=== PATIENT | female | born 1970 | race American Indian/Alaskan Native ===

== ENCOUNTER 2021-04-21 20:12 | Emergency (ER) | payer SELFPAY ==
[2021-04-21 20:20] VITALS: BP 144/82
[2021-04-21] MEDS ORDERED: KETOROLAC 30 MG/1 ML INJ IM ONE (21:19)
[2021-04-21] MEDS ORDERED: oxyCODONE /ACETAMINOPHEN 5-325MG TAB PO ONE (21:19)
[2021-04-21] MEDS ORDERED: dexAMETHasone 20 MG/5 ML VIAL IM ONE (21:19)
[2021-04-21 21:36] LABS: Basophils # (Auto) 0.1 K/mm3 (0.0-0.1); Basophils % (Auto) 1.3 % (0.0-1.8); Eosinophils # (Auto) 0.1 K/mm3 (0.0-0.4); Eosinophils % (Auto) 0.9 % (0.0-4.3); Hematocrit 39.1 % (30.3-42.9); Hemoglobin 13.2 gm/dl (10.1-14.3); Lymphocytes # (Auto) 2.2 K/mm3 (1.2-5.4); Lymphocytes % (Auto) 21.9 % (13.4-35.0); Mean Corpuscular HGB Conc 34 % (30-34); Mean Corpuscular Volume 84 fl (79-97); Monocytes # (Auto) 0.8 K/mm3 (0.0-0.8); Monocytes % (Auto) 8.1 % (0.0-7.3); Platelet Count 354 K/mm3 (140-440); Red Blood Count 4.66 M/mm3 (3.65-5.03)
[2021-04-21 22:00] LABS: Alanine Aminotransferase 48 units/L (7-56); Albumin 4.5 g/dL (3.9-5); Blood Urea Nitrogen 11 mg/dL (7-17); Calcium 10.5 mg/dL (8.4-10.2); Hemolysis Index 8
[2021-04-21 22:03] LABS: BUN/Creatinine Ratio 22
--- NOTE | 2021-04-21 23:06 | Emergency Department Report ---
ED Extremity Problem HPI - General Chief complaint: Extremity Injury, Upper Stated complaint: PAIN UP AND DOWN RIGHT ARM Source: patient Mode of arrival: Ambulatory Limitations: No Limitations - History of Present Illness Initial comments: Patient is a 50-year-old -Turkish female with a history of chronic osteoarthritis, and who goes to pain clinic, history of hypertension and [id number] diabetes who presents to the ED with complaint of acute exacerbation of her chronic right shoulder and elbow pain for the last 1 week, worse in the last 2 days. Patient states that she is been unable to perform any active range of motion of the right arm because of worsening right shoulder and elbow pain. Patient states that the pain is typical of her chronic pain of the right shoulder and elbow from chronic osteoarthritis. Patient denies fall, traumatic injury, numbness and tingling or weakness of right arm, neck pain, chest pain, shortness of breath, nausea and vomiting, headache, dizziness, syncope, back pain, fever and chills. MD Complaint: extremity pain (right shoulder and elbow pain), joint paint (right shoulder and elbow pain) -: days(s) (5), year(s) (3) Location: right, upper extremity (arm, shoulder and elbow) History of Same: Yes (chronic osteoarthritis) -: Yes arthralgia, No fever, No associated dyspnea, No associated chest pain Radiation: distal Severity scale (0 -10): 9 Quality: aching, sharp Consistency: constant Improves with: nothing Worsens with: weight bearing, walking, exertion, palpation Associated Symptoms: denies other symptoms, arthralgias (right shoulder, elbow pain). denies: chest pain, shortness of breath, fever, myalgias - Related Data Previous Rx's Medication Instructions Recorded Last Taken Type methOCARBAMOL [Robaxin] 500 mg PO BID #30 tab 09/06/13 Unknown Rx predniSONE [Deltasone] 50 mg PO QDAY #5 tab 09/06/13 Unknown Rx HYDROcodone/APAP 5-325 [[place] 1 each PO Q6HR PRN #20 tablet 08/04/15 Unknown Rx 5-325 mg TAB] Naproxen [Naprosyn TAB] 500 mg PO BID #30 tablet 08/04/15 Unknown Rx Allergies Allergy/AdvReac Type Severity Reaction Status Date / Time latex Allergy Unknown Verified 04/21/21 20:18 ED Review of Systems ROS: Stated complaint: PAIN UP AND DOWN RIGHT ARM Other details as noted in HPI Constitutional: denies: chills, fever Eyes: denies: eye pain, eye discharge, vision change ENT: denies: ear pain, throat pain Respiratory: denies: cough, shortness of breath, wheezing Cardiovascular: denies: chest pain, palpitations Endocrine: no symptoms reported Gastrointestinal: denies: abdominal pain, nausea, diarrhea Genitourinary: denies: urgency, dysuria, discharge Musculoskeletal: arthralgia (Right shoulder and elbow pain), myalgia. denies: back pain, joint swelling Skin: denies: rash, lesions Neurological: denies: headache, weakness, paresthesias Psychiatric: denies: anxiety, depression Hematological/Lymphatic: denies: easy bleeding, easy bruising ED Past Medical Hx - Past Medical History Previous Medical History?: Yes Hx Hypertension: Yes (no meds) Hx Diabetes: Yes Hx Arthritis: Yes (currently under the care of chronic pain management at [place]) - Surgical History Past Surgical History?: Yes Additional Surgical History: Fibroids embolization, left knee surgery - Social History Smoking Status: Never Smoker Substance Use Type: None - Medications Home Medications: Home Medications Medication Instructions Recorded Confirmed Last Taken Type methOCARBAMOL [Robaxin] 500 mg PO BID #30 tab 09/06/13 Unknown Rx predniSONE [Deltasone] 50 mg PO QDAY #5 tab 09/06/13 Unknown Rx HYDROcodone/APAP 5-325 [[place] 1 each PO Q6HR PRN #20 tablet 08/04/15 Unknown Rx 5-325 mg TAB] Naproxen [Naprosyn TAB] 500 mg PO BID #30 tablet 08/04/15 Unknown Rx ED Physical Exam - General Limitations: No Limitations General appearance: alert, in no apparent distress - Head Head exam: Present: atraumatic, normocephalic, normal inspection - Eye Eye exam: Present: normal appearance, PERRL, EOMI Pupils: Present: normal accommodation - ENT ENT exam: Present: normal exam, normal orophraynx, mucous membranes moist, TM's normal bilaterally, normal external ear exam - Neck Neck exam: Present: normal inspection, full ROM. Absent: tenderness - Respiratory Respiratory exam: Present: normal lung sounds bilaterally. Absent: respiratory distress, wheezes, rales, rhonchi, chest wall tenderness, accessory muscle use, decreased breath sounds, prolonged expiratory - Cardiovascular Cardiovascular Exam: Present: normal rhythm, tachycardia, normal heart sounds. Absent: systolic murmur, diastolic murmur, rubs, gallop - GI/Abdominal GI/Abdominal exam: Present: soft, normal bowel sounds. Absent: tenderness, guarding, rebound, hyperactive bowel sounds, organomegaly, bruit - Extremities Exam Extremities exam: Present: normal inspection, tenderness (Palpable right shoulder and elbow tenderness with limited range of motion due to pain), normal capillary refill. Absent: full ROM (Limited range of motion of right shoulder and elbow due to pain), pedal edema, joint swelling, calf tenderness - Back Exam Back exam: Present: normal inspection, full ROM, tenderness. Absent: CVA tenderness (R), CVA tenderness (L), muscle spasm, paraspinal tenderness, vertebral tenderness - Neurological Exam Neurological exam: Present: alert, oriented X3, CN II-XII intact, normal gait, reflexes normal - Psychiatric Psychiatric exam: Present: normal affect, normal mood, anxious - Skin Skin exam: Present: warm, dry, intact, normal color. Absent: rash ED Course Vital Signs 04/21/21 04/21/21 20:19 21:44 Temperature 99.3 F Pulse Rate 101 H Respiratory 18 18 Rate Blood Pressure 144/82 O2 Sat by Pulse 92 Oximetry ED Medical Decision Making - Lab Data Result diagrams: 04/21/21 21:24 04/21/21 21:24 - Medical Decision Making This is a 50-year-old -Turkish female with a history of chronic osteoarthritis, and who goes to pain clinic, history of hypertension and [id number] diabetes who presents to the ED with complaint of acute exacerbation of her chronic right shoulder and elbow pain for the last 1 week, worse in the last 2 days. Patient states that she is been unable to perform any active range of motion of the right arm because of worsening right shoulder and elbow pain. Patient states that the pain is typical of her chronic pain of the right shoulder and elbow from chronic osteoarthritis. In the ED, patient is alert and oriented x3 and is not in any distress. Patient was treated for pain in the ED. Initial lab test results were reviewed and are all nonactionable. Patient however eloped from the ED prior to being officially discharged from the ED. - Differential Diagnosis Chronic pain; osteoarthritis; bursitis; muscle strain; Critical care attestation.: If time is entered above; I have spent that time in minutes in the direct care of this critically ill patient, excluding procedure time. ED Disposition Clinical Impression: Chronic osteoarthritis, Pain of right upper extremity, Chronic bursitis of right shoulder Disposition: 07 LEFT AWOL/ELOPED Is pt being admited?: No Does the pt Need Aspirin: No Condition: Undetermined Instructions: Bursitis, [id number], Arthritis, [id number] Additional Instructions: All lab test results were reviewed and are all nonactionable. Therefore take your regular pain medications at home, follow-up with your primary care p hysician in 5 to 7 days for reevaluation. Return to the ED immediately if symptoms get worse. Referrals: [facility] [Provider Group] - 3-5 Days Time of Disposition: 23:05 Print Language: BERMUDIAN
== END 2021-04-22 02:45 | disposition left against medical advice (07) ==
LOC: ED 20:12
DX: M71.9 Bursopathy, unspecified (principal); G89.29 Other chronic pain; Z91.040 Latex allergy status
CPT/HCPCS: 36415; 80053; 85025; 96372; 99283; J1100; J1885

== ENCOUNTER 2021-12-31 20:33 | Emergency (ER) | payer BC, OTHER ==
--- NOTE | 2022-01-01 05:55 | Emergency Department Report ---
- General Chief complaint: Animal Bite Stated complaint: BIT BY A SPIDER Time Seen by Provider: 01/01/22 04:55 Source: patient Mode of arrival: Ambulatory Limitations: No Limitations - History of Present Illness Initial comments: 51-year-old -Armenian female with metformin complaining of painful swelling and tenderness to her left cheek after walking to a spider with her b rother in the morning and feeling a stinging sensation suggestive of a spider bite. After that episode she noticed swelling with a hypervascular worsening over the course of the day since that comes emergency department today seeking further evaluation and treatment options. MD complaint: insect bite/sting - Related Data Previous Rx's Medication Instructions Recorded Last Taken Type methOCARBAMOL [Robaxin] 500 mg PO BID #30 tab 09/06/13 Unknown Rx predniSONE [Deltasone] 50 mg PO QDAY #5 tab 09/06/13 Unknown Rx HYDROcodone/APAP 5-325 [[place] 1 each PO Q6HR PRN #20 tablet 08/04/15 Unknown Rx 5-325 mg TAB] Naproxen [Naprosyn TAB] 500 mg PO BID #30 tablet 08/04/15 Unknown Rx Ibuprofen [Motrin 600 MG tab] 600 mg PO Q8H PRN #20 tablet 05/07/21 Unknown Rx Ketorolac [Toradol] 10 mg PO Q6H PRN #15 tablet 01/01/22 Unknown Rx Ketorolac [Toradol] 10 mg PO Q6H PRN #15 tablet 01/01/22 Unknown Rx Sulfamethoxazole/Trimethoprim 1 each PO BID #20 tablet 01/01/22 Unknown Rx [Bactrim Ds] cephALEXin [Keflex] 500 mg PO Q6HR #40 capsule 01/01/22 Unknown Rx Allergies Allergy/AdvReac Type Severity Reaction Status Date / Time latex Allergy Unknown Verified 04/21/21 20:18 Abscess Boil HPI - HPI Chief Complaint: Animal Bite Stated Complaint: BIT BY A SPIDER Time Seen by Provider: 01/01/22 04:55 Home Medications: Previous Rx's Medication Instructions Recorded Last Taken Type methOCARBAMOL [Robaxin] 500 mg PO BID #30 tab 09/06/13 Unknown Rx predniSONE [Deltasone] 50 mg PO QDAY #5 tab 09/06/13 Unknown Rx HYDROcodone/APAP 5-325 [[place] 1 each PO Q6HR PRN #20 tablet 08/04/15 Unknown Rx 5-325 mg TAB] Naproxen [Naprosyn TAB] 500 mg PO BID #30 tablet 08/04/15 Unknown Rx Ibuprofen [Motrin 600 MG tab] 600 mg PO Q8H PRN #20 tablet 05/07/21 Unknown Rx Ketorolac [Toradol] 10 mg PO Q6H PRN #15 tablet 01/01/22 Unknown Rx Ketorolac [Toradol] 10 mg PO Q6H PRN #15 tablet 01/01/22 Unknown Rx Sulfamethoxazole/Trimethoprim 1 each PO BID #20 tablet 01/01/22 Unknown Rx [Bactrim Ds] cephALEXin [Keflex] 500 mg PO Q6HR #40 capsule 01/01/22 Unknown Rx Allergies/Adverse Reactions: Allergies Allergy/AdvReac Type Severity Reaction Status Date / Time latex Allergy Unknown Verified 04/21/21 20:18 ED Review of Systems ROS: Stated complaint: BIT BY A SPIDER Other details as noted in HPI Comment: All other systems reviewed and negative ED Past Medical Hx - Past Medical History Previous Medical History?: Yes Hx Hypertension: Yes (no meds) Hx Diabetes: Yes Hx Arthritis: Yes (currently under the care of chronic pain management at [place]) - Surgical History Past Surgical History?: Yes Additional Surgical History: Fibroids embolization, left knee surgery. c- section x3 - Social History Smoking Status: Never Smoker Substance Use Type: None - Medications Home Medications: Home Medications Medication Instructions Recorded Confirmed Last Taken Type methOCARBAMOL [Robaxin] 500 mg PO BID #30 tab 09/06/13 Unknown Rx predniSONE [Deltasone] 50 mg PO QDAY #5 tab 09/06/13 Unknown Rx HYDROcodone/APAP 5-325 [[place] 1 each PO Q6HR PRN #20 tablet 08/04/15 Unknown Rx 5-325 mg TAB] Naproxen [Naprosyn TAB] 500 mg PO BID #30 tablet 08/04/15 Unknown Rx Ibuprofen [Motrin 600 MG tab] 600 mg PO Q8H PRN #20 tablet 05/07/21 Unknown Rx Ketorolac [Toradol] 10 mg PO Q6H PRN #15 tablet 01/01/22 Unknown Rx Ketorolac [Toradol] 10 mg PO Q6H PRN #15 tablet 01/01/22 Unknown Rx Sulfamethoxazole/Trimethoprim 1 each PO BID #20 tablet 01/01/22 Unknown Rx [Bactrim Ds] cephALEXin [Keflex] 500 mg PO Q6HR #40 capsule 01/01/22 Unknown Rx ED Physical Exam - General Limitations: No Limitations General appearance: alert, in no apparent distress - Head Head exam: Present: atraumatic, normocephalic - Expanded Head Exam Expanded 1 - Swelling swelling tenderness in this region with a wound with a half a centimeter no discharge. - Eye Eye exam: Present: normal appearance, EOMI Pupils: Present: normal accommodation - ENT ENT exam: Present: normal exam, normal orophraynx, mucous membranes moist - Neck Neck exam: Present: normal inspection - Respiratory Respiratory exam: Present: normal lung sounds bilaterally. Absent: respiratory distress - Cardiovascular Cardiovascular Exam: Present: regular rate, normal rhythm. Absent: systolic murmur, diastolic murmur, rubs, gallop - GI/Abdominal GI/Abdominal exam: Present: soft, normal bowel sounds - Extremities Exam Extremities exam: Present: normal inspection - Back Exam Back exam: Present: normal inspection - Neurological Exam Neurological exam: Present: alert, oriented X3 - Psychiatric Psychiatric exam: Present: normal affect, normal mood - Skin Skin exam: Present: warm, dry, intact, normal color. Absent: rash ED Course Vital Signs 12/31/21 20:56 Temperature 98.2 F Pulse Rate 95 H Respiratory 16 Rate Blood Pressure 150/91 [Right] O2 Sat by Pulse 99 Oximetry Critical care attestation.: If time is entered above; I have spent that time in minutes in the direct care of this critically ill patient, excluding procedure time. ED Disposition Clinical Impression: Insect bite, Wound, open, face Disposition: 01 HOME / SELF CARE / HOMELESS Is pt being admited?: No Does the pt Need Aspirin: No Condition: Stable Instructions: Spider Bite, Wound Infection, Wound Care, Adult Prescriptions: Sulfamethoxazole/Trimethoprim [Bactrim Ds] 1 each PO BID #20 tablet cephALEXin [Keflex] 500 mg PO Q6HR #40 capsule Ketorolac [Toradol] 10 mg PO Q6H PRN #15 tablet PRN Reason: Pain Ketorolac [Toradol] 10 mg PO Q6H PRN #15 tablet PRN Reason: Pain
[2022-01-01 06:18] VITALS: BP 152/93
== END 2022-01-01 06:18 | disposition home or self-care (01) ==
LOC: ED 20:33
DX: S01.402A Unspecified open wound of left cheek and temporomandibular area, initial encounter (principal); I10 Essential (primary) hypertension; E11.9 Type 2 diabetes mellitus without complications; M19.90 Unspecified osteoarthritis, unspecified site; Z91.040 Latex allergy status; Z79.899 Other long term (current) drug therapy; W57.XXXA Bitten or stung by nonvenomous insect and other nonvenomous arthropods, initial encounter; Y93.89 Activity, other specified; Y92.89 Other specified places as the place of occurrence of the external cause; Y99.8 Other external cause status
CPT/HCPCS: 99282